=== PATIENT | male | born 1945 | race Caucasian/White ===

== ENCOUNTER 2019-03-06 10:33 | Inpatient (IN) | payer MEDICARE, OTHER ==
[~2019-03-06] VITALS: Ht 167.6 cm; Wt 84.4 kg
[2019-03-06] MEDS ORDERED: CHRONULAC30 ML PO (15:41)
[2019-03-06] MEDS ORDERED: SINEMET 25-1001 EAC1 PO (15:42)
[2019-03-06] MEDS ORDERED: SEROQUEL25 MG PO (15:43)
[2019-03-06] MEDS ORDERED: [UNRECOGNIZED DRUG - OTHER] (15:45)
[2019-03-06] MEDS ORDERED: HUMULIN N100 U/ML SC (15:45)
[2019-03-06] MEDS ORDERED: TENORMIN25 MG PO (15:46)
[2019-03-06] MEDS ORDERED: LEVOTHYROXINE100 MCG PO (15:46)
[2019-03-06 15:47] LABS: BASOPHILS 0.1 % (0-2); EOSINOPHILS 0 % (0-7); HEMATOCRIT 49.8 % (42.0-54.0); HEMOGLOBIN 16.8 g/dL (13.5-17.5); IMMATURE GRANULOCYTES 0.3 % (0-5); LYMPHOCYTES 3.2 % (15-50); MCH 32.7 pg (26.0-34.0); MCHC 33.7 g/dL (31.0-37.0); MCV 96.9 fL (80.0-100.0); MONOCYTES 8.4 % (2-11); RBC 5.14 10x6/uL (4.20-6.10); RDW 17.5 % (11.5-14.5)
[2019-03-06] MEDS ORDERED: FOLIC ACID1 MG PO (15:52)
[2019-03-06] MEDS ORDERED: SLOW RELEASE I160 MG PO (15:54)
[2019-03-06] MEDS ORDERED: LIPITOR20 MG PO (15:55)
[2019-03-06] MEDS ORDERED: BENTYL 20 MG TA20 MG PO (15:55)
[2019-03-06] MEDS ORDERED: LASIX20 MG PO (15:56)
[2019-03-06] MEDS ORDERED: MELATONIN 3 MG1 TAB PO (15:57)
[2019-03-06 15:58] LABS: PLATELET COUNT 80 10x3/uL (130-400)
[2019-03-06 16:03] LABS: ALBUMIN 3.6 g/dL (3.4-5.0); ANION GAP 14.3 mmol/L (8-16); BILIRUBIN - TOTAL 1.89 mg/dL (0.2-1.3); CALCIUM 9.3 mg/dL (8.5-10.1); CARBON DIOXIDE 23.8 mmol/L (21.0-32.0); CREATININE - SERUM 1.6 mg/dL (0.6-1.3); POTASSIUM - SERUM 5.1 mmol/L (3.5-5.1); PROTEIN - SERUM 8.3 g/dL (6.4-8.2)
[2019-03-06 16:10] VITALS: BP 130/58
[2019-03-06 17:28] LABS: PLATELET ESTIMATE DECREASED
[2019-03-06 18:26] LABS: APTT 33.6 SECONDS (22.8-39.4); INR 1.23 (0.85-1.17)
[2019-03-06 20:20] VITALS: BP 139/58
--- NOTE | 2019-03-06 20:32 | NUR ---
ATTEMPTED TO PLACE NG TUBE TO LEFT NARE. WENT DOWN FINE. BLOODY GASTRIC JUICES CAME UP. PATIENT RIPPED IT OUT BEFORE WE COULD SECURE. REFUSES PLACEMENT.
--- NOTE | 2019-03-06 20:35 | NUR ---
PATIENT ATTEMPTED REMOVAL OF IV TO RIGHT FOREARM. CAUGHT IN TIME TO PLACE ANOTHER DRESSING OVER IT.
--- NOTE | 2019-03-06 22:00 | NUR ---
ALERT, ORIENTED TO SELF AND TIME. REORIEMTED TO PLACE AND SITUATION. PT REPORTS PAIN TO ABDOMEN /. REFUSES HIBICLENS, PT IS RESTLESS AND AGITATED. ATTEMPTING TO REMOVE IV. COVERED WITH KEFLEX AND CONFERENCE CENTER MANAGER PAGED. WILL CONTINUE TO MONITOR.
[2019-03-07] VITALS (10 sets, daily range): BP systolic 91–149; BP diastolic 60–76; Ht 167.6 cm; Wt 84.4 kg
--- NOTE | 2019-03-07 04:36 | NUR ---
I have reviewed this patient and I concur with the Shift Assessment completed by the Licensed Practical Nurse today this shift.
[2019-03-07 05:58] LABS: ALBUMIN 3.3 g/dL (3.4-5.0); ANION GAP 16.5 mmol/L (8-16); BILIRUBIN - DIRECT 1.15 mg/dL (0.00-0.30); BILIRUBIN - INDIRECT 1.14 mg/dL (0.00-1.00); BILIRUBIN - TOTAL 2.29 mg/dL (0.2-1.3); CREATININE - SERUM 1.4 mg/dL (0.6-1.3); POTASSIUM - SERUM 4.5 mmol/L (3.5-5.1); PROTEIN - SERUM 7.5 g/dL (6.4-8.2)
[2019-03-07 06:10] LABS: BASOPHILS 0.1 % (0-2); EOSINOPHILS 0.3 % (0-7); HEMATOCRIT 48.5 % (42.0-54.0); HEMOGLOBIN 16.3 g/dL (13.5-17.5); IMMATURE GRANULOCYTES 0.2 % (0-5); LYMPHOCYTES 2.9 % (15-50); MCH 32.1 pg (26.0-34.0); MCHC 33.6 g/dL (31.0-37.0); MCV 95.7 fL (80.0-100.0); MONOCYTES 14.8 % (2-11); NEUTROPHILS 81.7 % (40-80); PLATELET COUNT 74 10x3/uL (130-400); RBC 5.07 10x6/uL (4.20-6.10); RDW 17.5 % (11.5-14.5)
[2019-03-07 06:13] LABS: WBC 12.1 10x3/uL (4.8-10.8)
--- NOTE | 2019-03-07 07:15 | NUR ---
PT SITTING UP ON SIDE OF BED, BED ALARM ALARMING. PT ORIENTED TO PERSON ONLY AT THIS TIME. ATTEMPTED TO REORIENTATE PT, ASSISTING HIM BACK TO BED. PT IS VERY RESTLESS. TREMORS NOTED AT THIS TIME. PT PULLING AT CLOTHING AND BEDDING. IV TO RIGHT FOREARM WITH NS @ 100ML/HR INFUSING VIA PUMP. SITE WITHOUT REDNESS OR EDEMA. NO VOMITING AT THIS TIME. CL WITHIN REACH. ENCOURAGED TO CALL WITH ASSISTANCE. SHARI FALL CHERYL IN PLACE AND ACTIVATED. CONTINUE POC
[2019-03-07 08:24] LABS: APPEARANCE CLEAR (CLEAR); BILIRUBIN NEGATIVE (NEGATIVE); COLOR DK YELLOW (YELLOW); GLUCOSE 50 mg/dL (NEGATIVE); KETONE SMALL mg/dL (NEGATIVE); NITRITE NEGATIVE (NEGATIVE); PROTEIN TRACE mg/dL (NEGATIVE); SPECIFIC GRAVITY 1.015 (1.005-1.020)
[2019-03-07 08:25] LABS: BACTERIA FEW /hpf (NEGATIVE); EPITHELIAL CELLS RARE /hpf (0-5); MUCUS <1+ /lpf (NONE SEEN); RED CELLS - URINE RARE /hpf (0-5); WHITE CELLS - URINE NSEEN /hpf (NEGATIVE)
--- NOTE | 2019-03-07 10:45 | NUR ---
PT VOMITED MODERATE AMOUNT OF DARK BROWN EMESIS. ADMINISTERED ZOFRAN PER MD ORDERS.
--- NOTE | 2019-03-07 11:15 | NUR ---
PT RESTING QUIETLY IN BED WITH EYES CLOSED AT THIS TIME. AT BEDSIDE.
--- NOTE | 2019-03-07 12:45 | NUR ---
PT TAKEN TO PRE OP VIA BED. NO ACUTE DISTRESS NOTED AT THIS TIME.
--- NOTE | 2019-03-07 17:20 | NUR ---
REC'D VIA BED FROM PACU NURSE, ITZEL, TRANSFERRED TO ICU BED AND RESUMED CARE, PATIENT IS DROWSEY, CONFUSED WITH GARBLED SPEECH, O2 VIA NC AT 5L, TRUMPET TO LEFT NARE, IN PLACE, ABDOMINAL BINDER COVERING MIDLINE INCISION WITH CDI DRESSING, LEFT SIDE WITH 3 LAP SITES, WITH CDI DRESSINGS, LANDA TO GRAVITY WITH CLEAR YELLOW DRAINAGE TO BAG, SCD'S IN PLACE BL, REPOSITIONED IN BED, AND CALLED TO BEDSIDE, ACCLAMATED TO ICU AND VISITATION HOURS, STATUS UPDATED, SHE VOICES NO CONCERNS AT THIS TIME
--- NOTE | 2019-03-07 18:00 | NUR ---
PATIENT PULLING OFF COVERS AND AT ABDOMINAL BINDER, DOES NOT FOLLOW COMMANDS, B/L WRIST RESTRAINTS PLACE PER ORDER FOR SAFETY
--- NOTE | 2019-03-07 18:40 | NUR ---
1530 ANES, RESP. LAB AT BEDSIDE. 12 LEAD EKG, ABG ORDERED AND OBTAINED. BICARB ORDERED PER ANES AND ADMINISTERED. 1545 DR. RUIZ AT BEDSIDE. CHEST XRAY, CARDIAC ENZYMES, NARCAN, ORDERED AND OBTAINED AND ADMINISTRATED. TRANSFER ORDERS TO ICU. FAMILY NOTIFIED AND UPDATED OF TRANSFER TO ICU BED 2310. NO FURTHER ORDERS RECEIVED.
--- NOTE | 2019-03-07 19:00 | NUR ---
REPORT RECEIVED, PT LETHARGIC AND DISORIENTED TO TIME, PLACE, AND SITUATION. REORIENTED NEEDED. NASAL TRUMPET IN PLACE, PT ON 5L O2 VIA NC. PIV IN LEFT FOREARM INFUSING, SEE FLOWSHEET. ASSESSMENT COMPLETED, SEE FLOWSHEET. NO ACUTE DISTRESS AT THIS TIME, WILL CONTINUE TO MONITOR.
--- NOTE | 2019-03-07 21:00 | NUR ---
PT RESTING IN BED, NO ACUTE DISTRESS NOTED AT THIS TIME.
--- NOTE | 2019-03-07 23:00 | NUR ---
PT RESTING IN BED, CONFUSED AND DISORIENTED TO PLACE, TIME, AND SITUATION. REORIENTED NEEDED. NO ACUTE DISTRESS AT THIS TIME.
[2019-03-08] VITALS (25 sets, daily range): BP systolic 92–141; BP diastolic 4–88
--- NOTE | 2019-03-08 01:00 | NUR ---
PT RESTING IN BED, NO SIGNS OF ACUTE DISTRESS NOTED. PT DISORIENTED TO PLACE, TIME, AND SITUATION, REORIENTED NEEDED.
--- NOTE | 2019-03-08 03:00 | NUR ---
PT STILL CONFUSED AND DISORIENTED, REORIENTED NEEDED TO PLACE, TIME, AND SITUATION. WILL CONTINUE TO MONITOR.
--- NOTE | 2019-03-08 05:00 | NUR ---
PT CONFUSED AND DISORIENTED, ATTEMPTING TO GET OUT OF BED, REORIENTED NEEDED. PT CALM AND COOPERATIVE AT THIS TIME.
[2019-03-08 06:12] LABS: ANION GAP 13.8 mmol/L (8-16); BILIRUBIN - DIRECT 0.96 mg/dL (0.00-0.30); BILIRUBIN - INDIRECT 1.15 mg/dL (0.00-1.00); BILIRUBIN - TOTAL 2.11 mg/dL (0.2-1.3); CARBON DIOXIDE 23.2 mmol/L (21.0-32.0); CREATININE - SERUM 1.7 mg/dL (0.6-1.3); PROTEIN - SERUM 6.3 g/dL (6.4-8.2)
[2019-03-08 06:15] LABS: ALBUMIN 2.3 g/dL (3.4-5.0)
--- NOTE | 2019-03-08 07:00 | NUR ---
REC'D REPORT AND RESUMED CARE, SLEEPING AROUSES TO VERBAL STIMULI, O2 VIA HF NC, SAT 98%, OTHER VSS, DENIES PAIN AT THIS TIME, ASSESSMENT COMPLETED PER FLOWSHEET, REPOSITIONED UP IN BED, ABDOMINAL BINDER IN PLACE, CALL LIGHT IN REACH, FOLLOWS SOME DIRECTIONS, HAS GARBLED SPEECH, COFUSED
[2019-03-08 07:32] LABS: HEMATOCRIT 43.6 % (42.0-54.0); HEMOGLOBIN 14.3 g/dL (13.5-17.5); MCH 32.1 pg (26.0-34.0); MCHC 32.8 g/dL (31.0-37.0); RBC 4.45 10x6/uL (4.20-6.10)
[2019-03-08 07:34] LABS: PLATELET COUNT 46 10x3/uL (130-400)
--- NOTE | 2019-03-08 08:20 | OP ---
PATIENT NAME: DENISE WASHINGTON MEDICAL RECORD: [id number] :43 LOCATION:[facility] D.2310 ADMISSION DATE:03/06/19 SURGEON: JOSE RAMON RUIZ MD DATE OF OPERATION: 03/07/2019 SURGEON: Jose Ramon Ruiz MD PREOPERATIVE DIAGNOSES: 1. Incarcerated ventral hernia repair. 2. Small-bowel obstruction. 3. Parkinson's dementia. POSTOPERATIVE DIAGNOSES: 1. Incarcerated strangulated ventral hernia. 2. Small-bowel obstruction. 3. Parkinson's dementia. PROCEDURES PERFORMED: Diagnostic laparoscopy, reduction of ventral hernia, laparotomy and small bowel resection. ANESTHESIA: General. COMPLICATIONS: None. SPECIMENS: Small bowel and hernia sac. ESTIMATED BLOOD LOSS: 60 cc. Case was clean contaminated. DESCRIPTION OF THE PROCEDURE After consent was obtained, the patient was taken to the operating room and placed in the supine position on the operating table. Next general anesthesia was given via endotracheal intubation after a timeout was performed to confirm the correct patient and procedure. Local anesthetic was injected in the left upper quadrant at Dumont's point. Using a 5-mm bladeless optical trocar, the abdomen was entered under direct laparoscopic vision. Adequate pneumoperitoneum was achieved. The abdominal cavity was inspected. No evidence of bowel injury. No evidence of bleeding. Two additional trocars were placed in the left lateral and left lower quadrants under direct laparoscopic vision. There was an incarcerated strangulated hernia at the umbilicus. It was a Jeffries's hernia in fashion. After wide gentle traction and external pressure, the hernia was finally able to be reduced. There was an area of perforation and in the herniated portion of the small bowel at the mesentery with active succuss drainage. At this time, a small midline incision was made with a #15-blade scalpel. Dissection continued with electrocautery to the level of the hernia sac, it was excised. The fascia was opened. Zaid retractor was placed. The small bowel was extracorporealized. The small bowel was markedly indurated and inflamed. At the enterotomy site, the linear MACK stapler was placed into the lumen of the proximal and distal limbs and a ledq-le-mwuf anastomosis was created using the linear cutting GI stapler. The common enterotomy was then closed with a second firing of the linear GI stapler. The staple line was imbricated using 3-0 Vicryl suture. The abdomen was irrigated with 3 liters of warm normal saline. OPERATIVE REPORT [id number] DENISE WASHINGTON At this time, the bowel was returned to the abdomen. The Zaid retractor was removed. Fascia was closed with a #1 looped PDS. Skin was closed with amira. The abdomen was reinsufflated. The abdominal cavity was inspected. There was no evidence of bile injury, no evidence of bleeding. At this time, all remaining instruments removed. The abdomen was desufflated. Trocars removed. Trocar sites were closed with amira. At the end of the case, all needle and instrument counts were correct. No complications occurred. The patient was extubated and transferred to the recovery room in satisfactory condition. TRANSINT:[id number] Voice Confirmation ID: [id number] DOCUMENT ID: [id number] JOSE RAMON RUIZ MD at 0820 CC: [id number] DICTATION DATE: 03/07/19 1442 MANAGER GLOBAL: 03/07/192031 ADM IN [facility] [address] [place] [address]
--- NOTE | 2019-03-08 09:00 | NUR ---
LEGS OVER SIDE OF BED AND COVERS OFF, REPOSITIONED, B/L WRIST RESTRAINTS IN USE, LOOSENED FOR REPOSITIONING, C/O PAIN, 10/12 MORPHINE 2 MG IVP GIVEN PER MAR FLOWSHEET
[2019-03-08 09:27] LABS: ANISOCYTOSIS OCC; BASOPHILS 2 % (0-2); EOSINOPHILS 2 % (0-7); LYMPHOCYTES 13 % (15-50); MONOCYTES 13 % (2-11); NEUTROPHILS 53 % (40-80); PLATELET ESTIMATE DECREASED; ROULEAUX OCC
--- NOTE | 2019-03-08 11:00 | NUR ---
PULLING AT DRESSINGS AT POST SURGICAL SITES, REPOSITIONED UP IN BED, SITES RECOVERED, N0 OTHER ACUTE CHANGE FROM PREVIOUS
--- NOTE | 2019-03-08 12:00 | NUR ---
AT BEDSIDE, PATIENT CONTINUING TO PULL OFF COVERS AND HAS PULLED OUT LEFT AC PIV, NOW PULLING AT LANDA, REPOSITION AND CONCEALED LANDA, ATIVAN 1MG IVP GIVEN PER PRN ORDER
--- NOTE | 2019-03-08 13:13 | NUR ---
Nutrition follow-up: s/p hernia repair Diet: clear liquids Pt confused per nursing Labs reviewed Wt: 185# RDN following.
--- NOTE | 2019-03-08 18:56 | MORECARE ---
CASE MANAGEMENT DISCHARGE SUMMARY PATIENT: DENISE WASHINGTON UNIT: [id number] ADM DATE: 03/06/19 AGE: 73 : 44 SEX: M ROOM/BED: D.2310 AUTHOR: VICKY PIERRE PHYSICIAN: REFERRING PHYSICIAN: CORY KOEHLER MD DATE OF SERVICE: 03/08/19 Discharge Plan Patient Name: DENISE WASHINGTON [facility] 1945 Planned Disposition: Anticipated Discharge Date: Discharge Date: Expected LOS: Initial Reviewer: [email or web address] Initial Review Date: 03/06/2019 Generated: 03/08/19 7:55 pm Patient Name: DENISE WASHINGTON Page [id number] at 1856 All edits/amendments must be made on the electronic document DICTATION DATE: 03/08/191854 ASSEMBLY MACHINE TOOL SETTER: JEANNIE 03/08/191854 RPT#: [id number] DC DATE: STATUS: ADM IN [facility] [address] [place] [address] END OF REPORT
--- NOTE | 2019-03-08 19:00 | NUR ---
REPORT RECEIVED, PT LAYING IN BED, DISORIENTED TO TIME, PLACE, SITUATION. REORIENTED NEEDED. PT CONTINUOUSLY TRYING TO SWING LEGS OUT OF BED, PT IN SOFT WRIST RESTRAINTS. LANDA IN PLACE, PIV IN RT WRIST INFUSING, SEE FLOWSHEET. PT PEELING OFF DRESSINGS ON INCISION SITES, NEW DRESSINGS PLACED. WILL CONTINUE TO MONITOR.
--- NOTE | 2019-03-08 19:02 | MORECARE ---
CASE MANAGEMENT DISCHARGE SUMMARY PATIENT: DENISE WASHINGTON UNIT: [id number] ADM DATE: 03/06/19 AGE: 73 : 44 SEX: M ROOM/BED: D.2310 AUTHOR: VICKY PIERRE PHYSICIAN: REFERRING PHYSICIAN: CORY KOEHLER MD DATE OF SERVICE: 03/08/19 Discharge Plan Patient Name: DENISE WASHINGTON [facility] [facility] 1945 Planned Disposition: Anticipated Discharge Date: Discharge Date: Expected LOS: Initial Reviewer: [email or web address] Initial Review Date: 03/06/2019 Generated: 03/08/19 8:02 pm Comments DCP- Discharge Planning Updated by [email or web address]: Sussy Ansari on 03/08/19 5:[address] CM attempted to see patient for discharge planning assessment. Patient is currently confused and no family at bedside. CM will continue to follow and assist as needed with discharge planning / needs. Last DP export: 03/08/19 5:56 p Patient Name: DENISE WASHINGTON Page [phone] at 1902 All edits/amendments must be made on the electronic document DICTATION DATE: 03/08/191901 TRAFFIC ENGINEERING TECHNICIAN: JEANNIE 03/08/191901 RPT#: [id number] DC DATE: STATUS: ADM IN [facility] [address] [place] [address] END OF REPORT
--- NOTE | 2019-03-08 21:00 | NUR ---
PT AGITATED, ATTEMPTED TO GET OUT OF BED MULTIPLE TIMES. BRUISING NOTED ON LEFT SIDE OF ABDOMEN, WILL CONTINUE TO MONITOR.
--- NOTE | 2019-03-08 23:00 | NUR ---
PT AGITATED, ATTEMPTED TO MOVE LEGS OUT OF BED. RESTRAINTS IN PLACE, WILL CONTINUE TO MONITOR.
[2019-03-09] VITALS (11 sets, daily range): BP systolic 89–150; BP diastolic 55–91
--- NOTE | 2019-03-09 01:00 | NUR ---
PT DISORIENTED AND AGITATED, ATTEMPTING TO MOVE LEGS OUT OF BED WELL PULL AT LINES AND LANDA TUBING. REORIENTED NEEDED, WILL CONTINUE TO MONITOR.
--- NOTE | 2019-03-09 03:00 | NUR ---
PT RESTING COMFORTABLY IN BED, NO ACUTE DISTRESS NOTED AT THIS TIME.
[2019-03-09 04:37] LABS: HEMATOCRIT 37.6 % (42.0-54.0); HEMOGLOBIN 12.8 g/dL (13.5-17.5); LYMPHOCYTES 4.5 % (15-50); MCH 32.2 pg (26.0-34.0); NEUTROPHILS 83.5 % (40-80); RBC 3.97 10x6/uL (4.20-6.10); RDW 17.7 % (11.5-14.5)
[2019-03-09 04:59] LABS: ALBUMIN 1.9 g/dL (3.4-5.0); ANION GAP 9.8 mmol/L (8-16); BILIRUBIN - DIRECT 0.82 mg/dL (0.00-0.30); BILIRUBIN - INDIRECT 0.68 mg/dL (0.00-1.00); BILIRUBIN - TOTAL 1.5 mg/dL (0.2-1.3); CALCIUM 7.3 mg/dL (8.5-10.1); POTASSIUM - SERUM 3.8 mmol/L (3.5-5.1); PROTEIN - SERUM 5.7 g/dL (6.4-8.2)
--- NOTE | 2019-03-09 05:00 | NUR ---
PT PULLING AT LINES AND TAKING GOWN OFF MULTIPLE TIMES. REORIENTED NEEDED.
[2019-03-09 05:14] LABS: CREATININE - SERUM 1.2 mg/dL (0.6-1.3)
[2019-03-09 05:16] LABS: MCV 94.7 fL (80.0-100.0); WBC 5.6 10x3/uL (4.8-10.8)
[2019-03-09 05:17] LABS: PLATELET COUNT 26 10x3/uL (130-400)
--- NOTE | 2019-03-09 07:00 | NUR ---
REPORT RECIEVED. ASSESSMENT COMPLETED. SEE FLOW SHEET. VSS. CALL LIGHT IN REACH. WILL CONT POC.
--- NOTE | 2019-03-09 08:17 | NUR ---
DR RUIZ IN THE UNIT.
--- NOTE | 2019-03-09 09:42 | NUR ---
BEDBATH GIVEN TO THE PT. PT UNABLE TO ASSIST. MID ABD DRESSING CHANGED. INCISION WELL APPROXIMATED WITH SCANT SEROUS DRAINAGE. MEDS CRUSHED AND PUT IN PUDDING. SMALL BITES GIVEN. PT TOLERATED WELL. WILL CONT POC.
--- NOTE | 2019-03-09 09:44 | NUR ---
REPORT CALLED TO JAILYN SALCEDO.
--- NOTE | 2019-03-09 10:07 | NUR ---
TO ROOM 2230 FROM ICU VIA SHARI BED.PT IS RESTING WITHOUT SIGNS OF DISTRESS.DOOR OPEN TO MONITOR
--- NOTE | 2019-03-09 11:00 | NUR ---
INCONT OF URINE. BRIEF PLACED ON PATIENT.HE WILL NOT LEAVE GOWN ON. HE IS ALSO PULLING 02 OFF. I HAVE PLACED 02 BACK ON MULTIPLE TIMES. DOOR OPEN TO MONITOR
--- NOTE | 2019-03-09 12:00 | NUR ---
HERE TO VISIT. SHARI BED OPEN.
--- NOTE | 2019-03-09 16:15 | NUR ---
TO LEAVE. PT HAS BEEN CHANGED,INCONT OF URINE. HE CONTINUES TO PULL AT LINES AND PULLING 02 OFF.DOOR OPEN TO MONITOR
--- NOTE | 2019-03-09 17:20 | MORECARE ---
CASE MANAGEMENT DISCHARGE SUMMARY PATIENT: DENISE ARIAS UNIT: [id number] ADM DATE: 03/06/19 AGE: 73 : 44 SEX: M ROOM/BED: D.2230 AUTHOR: VICKY PIERRE PHYSICIAN: REFERRING PHYSICIAN: CORY KOEHLER MD DATE OF SERVICE: 03/09/19 Discharge Plan Patient Name: DENISE ARIAS Facility[facility]:[place] : 1945 Planned Disposition: Residential Facility Anticipated Discharge Date: Discharge Date: Expected LOS: Initial Reviewer: [email or web address] Initial Review Date: 03/06/2019 Generated: 03/09/19 6:19 pm Comments DCP- Discharge Planning Updated by [email or web address]: Sussy Ansari on 03/08/19 5:[address] CM attempted to see patient for discharge planning assessment. Patient is currently confused and no family at bedside. CM will continue to follow and assist as needed with discharge planning / needs. DCPIA - Discharge Planning Initial Assessment Updated by [email or web address]: Carmelita Velasco on 03/09/19 5:15 pm * Is the patient Alert and Oriented? No * How many steps to enter\exit or inside your home? 1/0 * Pharmacy [facility] 7N * Preadmission Environment Home with Family * ADLs Partial Dependent * Partial ADLs (Assistance needed) Dressing Medication Management * Equipment Glucometer * List name and contact numbers for known caregivers / representatives who currently or will assist patient after discharge: Davina Arias - [facility] - [phone] * Verbal permission to speak to the caregivers and representatives has been obtained from the patient. N/A * Community resources currently utilized Other * Please name any agencies selected above. [employer] [facility] at [facility] on [address] for Parkinson's * Additional services required to return to the preadmission environment? Yes * Can the patient safely return to the preadmission environment? No * Has this patient been hospitalized within the prior 30 days at any hospital? No Last DP export: 03/08/19 6:02 p Patient Name: DENISE ARIAS Page [phone] at 1720 All edits/amendments must be made on the electronic document DICTATION DATE: 03/09/191718 ELECTRONIC SYSTEM ENGINEER: JEANNIE 03/09/191718 RPT#: [id number] DE DATE: STATUS: ADM IN [facility] [address] [place] [address] END OF REPORT
--- NOTE | 2019-03-09 17:28 | MORECARE ---
CASE MANAGEMENT DISCHARGE SUMMARY PATIENT: DENISE ARIAS UNIT: [id number] ADM DATE: 03/06/19 AGE: 73 : 44 SEX: M ROOM/BED: D.2230 AUTHOR: GABBYDOC PHYSICIAN: REFERRING PHYSICIAN: CORY KOEHLER MD DATE OF SERVICE: 03/09/19 Discharge Plan Patient Name: DENISE ARIAS Facility: [facility]:[place] : 1945 Planned Disposition: Group Home Facility Anticipated Discharge Date: Discharge Date: Expected LOS: Initial Reviewer: [email or web address] Initial Review Date: 03/06/2019 Generated: 03/09/19 6:28 pm Comments DCP- Discharge Planning Updated by [email or web address]: Carmelita Velasco on 03/09/19 4:[address] Patient Name: DENISE ARIAS Admission Status: Elective Accout number: [id number] Admission Date: 03-06-2019 : 1945 Admission Diagnosis: Attending: CORY KOEHLER Current LOS: 3 Anticipated DC Date: Planned Disposition: Group Home Facility Primary Insurance: MEDICARE A & B Discharge Planning Comments: CM met with in the room to discuss discharge planning. Her is confused and in a lilly bed at this time. She states he lives with her. She states he no longer drives, but she drives him where he needs to go. She states he has a glucometer and checks his own blood sugar, but she gives him his insulin injections. She states that she helps him don his socks and gives him his medicine, but other than that he is independent with his care. He ambulates without assistive device at home. I discussed the availability of inpatient rehab, SNF, home health and DME. She states she would like him to be closer to [facility] and signs choice form for [facility]. She does not want to choose 2 other choices at this time. CM will need to have a PT EVAL before referring to a skilled facility. PT consult has been ordered. CM will continue to follow and assist with discharge planning/needs. Visual Merchandising Assistant: Carmelita Velasco DCP- Discharge Planning Updated by [email or web address]: Sussy Ansari on 03/08/19 5:[address] CM attempted to see patient for discharge planning assessment. Patient is currently confused and no family at bedside. CM will continue to follow and assist as needed with discharge planning / needs. DCPIA - Discharge Planning Initial Assessment Updated by [id number]: Carmelita Velasco on 03/09/19 5:15 pm * Is the patient Alert and Oriented? No * How many steps to enter\exit or inside your home? 1/0 * Pharmacy [facility] 7N * Preadmission Environment Home with Family * ADLs Partial Dependent * Partial ADLs (Assistance needed) Dressing Medication Management * Equipment Glucometer * List name and contact numbers for known caregivers / representatives who currently or will assist patient after discharge: Davina Arias - - [phone] * Verbal permission to speak to the caregivers and representatives has been obtained from the patient. N/A * Community resources currently utilized Other * Please name any agencies selected above. [employer] [facility] at [facility] on [address] for Parkinson's * Additional services required to return to the preadmission environment? Yes * Can the patient safely return to the preadmission environment? No * Has this patient been hospitalized within the prior 30 days at any hospital? No Last DP export: 03/09/19 4:20 p Patient Name: DENISE ARIAS Page [phone] at 1728 All edits/amendments must be made on the electronic document DICTATION DATE: 03/09/191727 QUALIFICATION ENGINEER: JEANNIE 03/09/191727 RPT#: [id number] DC DATE: STATUS: ADM IN [facility] [address] [place] [address] END OF REPORT
--- NOTE | 2019-03-09 18:43 | NUR ---
PT PULLING AT LINES AND PULLING 02 OFF. I HAVE PRETTY MUCH BEEN UNABLE TO LEAVE ROOM AFTER LEAVING HOSPITAL. HE ALSO IS GRABBING STAFF BENDING FINGERS AND HANDS.HIS OXYGEN DROPS IN THE 80% RANGE WHEN ON ROOM AIR.CALL TO LEONILA MAYO APN FOR ORDERS.ORDERS RECIEVED AND INITIATED.CALL TO LAB FOR STAT CBC,BLOOD CUTURE FOR TEMP 101.6.
[2019-03-09 19:10] LABS: HEMATOCRIT 40.7 % (42.0-54.0); MCH 32.3 pg (26.0-34.0); MCHC 34.4 g/dL (31.0-37.0); MCV 93.8 fL (80.0-100.0); RBC 4.34 10x6/uL (4.20-6.10); RDW 16.7 % (11.5-14.5); WBC 10.5 10x3/uL (4.8-10.8)
[2019-03-09 19:20] LABS: PLATELET COUNT 28 10x3/uL (130-400)
--- NOTE | 2019-03-09 19:25 | NUR ---
LYING IN ENCLOSURE BED WITH SOME S/S OF SLIGHT AGITATION. UNABLE TO LIE STILL, CONTINUOUSLY PULLING AT LINES AND ITEMS IN BED. WILL NOTE ANY CHANGE.
[2019-03-09 19:28] LABS: LYMPHOCYTES 2 % (15-50); MONOCYTES 7 % (2-11); NEUTROPHILS 85 % (40-80)
[2019-03-09 19:29] LABS: PLATELET ESTIMATE DECREASED
--- NOTE | 2019-03-09 20:27 | NUR ---
NOTICEABLY CALMER IN ENCLOSURE BED, STILL PULLING AT LINES, BUT FACIAL GRIMACING IS MINIMAL, S/S OF DISTRESS OR AGITATION IS LOWERING. WILL NOTE ANY CHANGE.
--- NOTE | 2019-03-09 20:36 | NUR ---
CONTINUES TO PULL AT LINES, WILL NOT LEAVE OXYGEN ON, BUT TOLERATES REPLACING IT ON HIM AT THIS TIME. WILL NOTE LEAVE BINDER ON, WILL NOT LEAVE DRESSINGS TO SITES ON. WILL CONTINUE TO OBSERVE.
--- NOTE | 2019-03-09 21:28 | NUR ---
WHILE PROVIDING CARE, TALKED WITH PT ABOUT MEDICATION, HE WAS ALERT AND ANSWERED SOME QUESTIONS APPROPRIATELY, HE STATED HE HAS TAKEN HIS SINEMET FOR A LONG TIME. THIS NURSE WILL ATTEMPT TO ADMINISTER MEDS PO.
--- NOTE | 2019-03-09 22:29 | NUR ---
CALLED Rebeca STAUFFER TO CLARIFY CONFLICTING REPORT VS REVIEW IN CHART FOR ORAL CONSUMPTION, HE VERBALLY AGREED WITH PT TAKING ORAL MEDICATION. THEY WERE ADMINISTERED WITH JELLO AND NO HESITATION FROM PT. FOLLOWED ALL CUES.
[2019-03-10 00:13] VITALS: BP 117/64
--- NOTE | 2019-03-10 01:16 | NUR ---
I have reviewed this patient and I concur with the Shift Assessment completed by the Licensed Practical Nurse today this shift.
[2019-03-10 05:14] VITALS: BP 127/70
[2019-03-10 07:22] LABS: ALBUMIN 1.7 g/dL (3.4-5.0); ANION GAP 10.9 mmol/L (8-16); BILIRUBIN - TOTAL 1.51 mg/dL (0.2-1.3); CARBON DIOXIDE 24.1 mmol/L (21.0-32.0); CREATININE - SERUM 1.1 mg/dL (0.6-1.3); PROTEIN - SERUM 5.7 g/dL (6.4-8.2)
[2019-03-10 07:23] LABS: BASOPHILS 0.1 % (0-2); HEMATOCRIT 39.3 % (42.0-54.0); HEMOGLOBIN 13.2 g/dL (13.5-17.5); IMMATURE GRANULOCYTES 0.4 % (0-5); LYMPHOCYTES 3.5 % (15-50); MCH 31.9 pg (26.0-34.0); MCHC 33.6 g/dL (31.0-37.0); MCV 94.9 fL (80.0-100.0); MONOCYTES 9.9 % (2-11); NEUTROPHILS 85.1 % (40-80); RBC 4.14 10x6/uL (4.20-6.10); RDW 17.2 % (11.5-14.5); WBC 8.3 10x3/uL (4.8-10.8)
--- NOTE | 2019-03-10 07:25 | NUR ---
REC'D IN BED AWAKE AND ALERT. RESP EVEN AND UNLABORED WITH NO DISTRESS NOTED. CAN EXPRESS NEEDS AND WANTS. NO C/O NOTED OR VOICE AT THIS TIME. ASSESMENT COMPLETD. REC'D CALL FROM LAB WITH CRITCAL PLT COUNT OF 49. SPOKE WITH Martha EDGAR APN WITH NO NEW ORDERS REC'D. C/L IN REACH AT BEDSIDE.
[2019-03-10 07:26] LABS: PLATELET COUNT 49 10x3/uL (130-400)
--- NOTE | 2019-03-10 07:30 | NUR ---
REC'D IN SHARI BED WITH EYES CLOSED AROUSED TO VOICED. RESP EVEN AND UNLABORED WITH NO DISTRESS NOTED. HUGE RED BRUISING NOTED TO LEFT SIDE AND BACK. ASSESSMENT COMPLETED. C/L IN REACH AT BEDSIDE.
[2019-03-10 08:46] VITALS: BP 139/74
[2019-03-10 14:03] VITALS: BP 127/52
--- NOTE | 2019-03-10 14:54 | NUR ---
Nutrition follow-up/consult: Diet has advanced to full liquids Pt currently in lilly bed due to confusion; better per nursing Labs reviewed Wt: 185# RDN will order nutritional supplement with meals. Following.
--- NOTE | 2019-03-10 15:32 | MORECARE ---
CASE MANAGEMENT DISCHARGE SUMMARY PATIENT: DENISE ARIAS UNIT: [id number] ADM DATE: 03/06/19 AGE: 73 : 43 SEX: M ROOM/BED: D.2230 AUTHOR: GABBYDOC PHYSICIAN: REFERRING PHYSICIAN: CORY KOEHLER MD DATE OF SERVICE: 03/10/19 Discharge Plan Patient Name: DENISE ARIAS Facility: [facility]:[place] : 1945 Planned Disposition: Halfway Facility Anticipated Discharge Date: Discharge Date: Expected LOS: Initial Reviewer: [email or web address] Initial Review Date: 03/06/2019 Generated: 03/10/19 4:31 pm Comments DCP- Discharge Planning Updated by [email or web address]: Carmelita Velasco on 03/09/19 4:[address] Patient Name: DENISE ARIAS Admission Status: Elective Accout number: [id number] Admission Date: 03-06-2019 : 1945 Admission Diagnosis: Attending: CORY KOEHLER Current LOS: 3 Anticipated DC Date: Planned Disposition: Halfway Facility Primary Insurance: MEDICARE A & B Discharge Planning Comments: CM met with in the room to discuss discharge planning. Her is confused and in a lilly bed at this time. She states he lives with her. She states he no longer drives, but she drives him where he needs to go. She states he has a glucometer and checks his own blood sugar, but she gives him his insulin injections. She states that she helps him don his socks and gives him his medicine, but other than that he is independent with his care. He ambulates without assistive device at home. I discussed the availability of inpatient rehab, SNF, home health and DME. She states she would like him to be closer to [facility] and signs choice form for [facility]. She does not want to choose 2 other choices at this time. CM will need to have a PT EVAL before referring to a skilled facility. PT consult has been ordered. CM will continue to follow and assist with discharge planning/needs. Vision Specialist: Carmelita Velasco DCP- Discharge Planning Updated by [email or web address]: Sussy Ansari on 03/08/19 5:[address] CM attempted to see patient for discharge planning assessment. Patient is currently confused and no family at bedside. CM will continue to follow and assist as needed with discharge planning / needs. DCPIA - Discharge Planning Initial Assessment Updated by [email or web address]: Carmelita Velasco on 03/09/19 5:15 pm * Is the patient Alert and Oriented? No * How many steps to enter\exit or inside your home? 1/0 * Pharmacy [facility] * Preadmission Environment Home with Family * ADLs Partial Dependent * Partial ADLs (Assistance needed) Dressing Medication Management * Equipment Glucometer * List name and contact numbers for known caregivers / representatives who currently or will assist patient after discharge: Davina Arias - - [phone] * Verbal permission to speak to the caregivers and representatives has been obtained from the patient. N/A * Community resources currently utilized Other * Please name any agencies selected above. [facility] [employer] [facility] at [facility] on [address] for Parkinson's * Additional services required to return to the preadmission environment? Yes * Can the patient safely return to the preadmission environment? No * Has this patient been hospitalized within the prior 30 days at any hospital? No External Providers External Provider: [facility] Next Contact Date: Service Request Date: Service Type: Resolution: Reviewer: Comments: Last DP export: 03/09/19 4:28 p Patient Name: DENISE ARIAS Page 17634 at 1532 All edits/amendments must be made on the electronic document DICTATION DATE: 03/10/19 1531 REHABILITATION THERAPY AIDE: JEANNIE 03/10/19 1531 RPT#: [id number] DC DATE: STATUS: [facility] [address] [place] [address] END OF REPORT
--- NOTE | 2019-03-10 15:49 | MORECARE ---
CASE MANAGEMENT DISCHARGE SUMMARY PATIENT: DENISE ARIAS UNIT: [id number] ADM DATE: 03/06/19 AGE: 73 : 44 SEX: M ROOM/BED: D.2230 AUTHOR: GABBYDOC PHYSICIAN: REFERRING PHYSICIAN: CORY KOEHLER MD DATE OF SERVICE: 03/10/19 Discharge Plan Patient Name: DENISE ARIAS Facility: [facility]:[place] : 1945 Planned Disposition: Senior Living Facility Anticipated Discharge Date: Discharge Date: Expected LOS: Initial Reviewer: [email or web address] Initial Review Date: 03/06/2019 Generated: 03/10/19 4:48 pm Comments DCP- Discharge Planning Updated by [email or web address]: Carmelita Velasco on 03/10/19 2:[address] Patient's would like referral to [facility], I spoke with Marni Heart there and clinical faxed. CM will continue to follow and assist with discharge planning/needs. DCP- Discharge Planning Updated by [email or web address]: Carmelita Velasco on 03/09/19 4:[address] Patient Name: DENISE ARIAS Admission Status: Elective Accout number: [id number] Admission Date: 03-06-2019 : 1945 Admission Diagnosis: Attending: CORY KOEHLER Current LOS: 3 Anticipated DC Date: Planned Disposition: Senior Living Facility Primary Insurance: MEDICARE A & B Discharge Planning Comments: CM met with in the room to discuss discharge planning. Her is confused and in a lilly bed at this time. She states he lives with her. She states he no longer drives, but she drives him where he needs to go. She states he has a glucometer and checks his own blood sugar, but she gives him his insulin injections. She states that she helps him don his socks and gives him his medicine, but other than that he is independent with his care. He ambulates without assistive device at home. I discussed the availability of inpatient rehab, SNF, home health and DME. She states she would like him to be closer to [facility] and signs choice form for [facility]. She does not want to choose 2 other choices at this time. CM will need to have a PT EVAL before referring to a skilled facility. PT consult has been ordered. CM will continue to follow and assist with discharge planning/needs. Fiscal Clerk: Carmelita Velasco DCP- Discharge Planning Updated by [email or web address]: Sussy Ansari on 03/08/19 5:[address] CM attempted to see patient for discharge planning assessment. Patient is currently confused and no family at bedside. CM will continue to follow and assist as needed with discharge planning / needs. DCPIA - Discharge Planning Initial Assessment Updated by [email or web address]: Carmelita Velasco on 03/09/19 5:15 pm * Is the patient Alert and Oriented? No * How many steps to enter\exit or inside your home? 1/0 * Pharmacy [facility] * Preadmission Environment Home with Family * ADLs Partial Dependent * Partial ADLs (Assistance needed) Dressing Medication Management * Equipment Glucometer * List name and contact numbers for known caregivers / representatives who currently or will assist patient after discharge: Davina Arias - - [phone] * Verbal permission to speak to the caregivers and representatives has been obtained from the patient. N/A * Community resources currently utilized Other * Please name any agencies selected above. [employer] [facility] at [facility] on [address] for Parkinson's * Additional services required to return to the preadmission environment? Yes * Can the patient safely return to the preadmission environment? No * Has this patient been hospitalized within the prior 30 days at any hospital? No Last DP export: 03/10/19 2:32 p Patient Name: DENISE ARIAS Page 45775 at 1549 All edits/amendments must be made on the electronic document DICTATION DATE: 03/10/191547 MIRROR INSPECTOR: JEANNIE 03/10/191547 RPT#: [id number] DC DATE: STATUS: ADM IN [facility] [address] [place] [address] END OF REPORT
[2019-03-10 17:33] VITALS: BP 133/62
--- NOTE | 2019-03-10 18:33 | NUR ---
I have reviewed this patient and I concur with the Shift Assessment completed by the Licensed Practical Nurse today this shift.
--- NOTE | 2019-03-10 20:10 | NUR ---
RECEIVED AWAKE ALERT WITH CONFUSION NOTED. HAS OXYGEN OFF. O2 VIA NC REPLACE. SPO2 @ 96%. NO DISTRESS NOTED.IV TO RFA INTACT WITHOUT REDENSS OR EDEMA NOTED. MID LINE INCISION WITH GRECIA INTACT.INCISION TO LEFT ABD WITH GRECIA INTACT. NO DRAINAGE NOTED. PATIENT IS IN ENCLOSURE BED FOR [facility].
[2019-03-10 21:00] VITALS: BP 124/57
--- NOTE | 2019-03-10 23:30 | NUR ---
RESTING QUIELTY WITH NO DISTRESS NOTED. POSITONS SELF FOR COMFORT. CL IN REACH
[2019-03-11 00:16] VITALS: BP 123/62
--- NOTE | 2019-03-11 03:04 | NUR ---
I have reviewed this patient and I concur with the Shift Assessment completed by the Licensed Practical Nurse today this shift.
--- NOTE | 2019-03-11 03:50 | NUR ---
POSITIONS SELF FOR COMFORT. INCONTINENT OF B/B. LINENS CHANGED. DEB CARE GIVEN. NO DISTRESS NOTED.
[2019-03-11 05:07] VITALS: BP 144/74
--- NOTE | 2019-03-11 06:04 | NUR ---
AROUSES TO VERBAL STIMULI. NO DISTESS NOTED.O2 @ 3L PER HIGH FLOW ON. RESP UNALBORED. REMAINS DISORIENTED TO SURROUNDINGS. FALL PRECAUTIONS IN PLACE.CL IN REACH
[2019-03-11 06:46] LABS: ALBUMIN 1.5 g/dL (3.4-5.0); ALKALINE PHOSPHATASE 69 U/L (46-116); ALT (SGPT) 28 U/L (10-68); BILIRUBIN - TOTAL 1.38 mg/dL (0.2-1.3); CALC OSMOLALITY 279 mosm/kg (275-300); CALCIUM 7.9 mg/dL (8.5-10.1); CARBON DIOXIDE 24.5 mmol/L (21.0-32.0); CHLORIDE - SERUM 105 mmol/L (98-107); GLUCOSE 146 mg/dL (74-106); POTASSIUM - SERUM 3.8 mmol/L (3.5-5.1); PROTEIN - SERUM 4.9 g/dL (6.4-8.2); SODIUM 136 mmol/L (136-145); UREA NITROGEN 27 mg/dL (7-18); eGFR NON AFRICAN AMERICAN 78 mL/min (90-120)
[2019-03-11 06:54] LABS: BASOPHILS 0.1 % (0-2); HEMATOCRIT 36.4 % (42.0-54.0); HEMOGLOBIN 12.5 g/dL (13.5-17.5); IMMATURE GRANULOCYTES 0.7 % (0-5); LYMPHOCYTES 5.5 % (15-50); MCHC 34.3 g/dL (31.0-37.0); MCV 93.1 fL (80.0-100.0); MONOCYTES 8.7 % (2-11); RBC 3.91 10x6/uL (4.20-6.10); WBC 8.7 10x3/uL (4.8-10.8)
[2019-03-11 06:56] LABS: PLATELET COUNT 43 10x3/uL (130-400)
--- NOTE | 2019-03-11 07:15 | NUR ---
REC'D IN BED AWAKE AND ALERT TO NAME ONLY. RESP EVEN AND UNLABORED WITH NO DISTRESS NOTED HAS O2 IN USE VIA N/C THAT HE REMOVS FROM TIME TO TIME WITH REDIRECTION GIVEN. REMAIN IN SHARI BED AT THIS TIME FOR SAFETY. ASSESSMENT COMPLETED. MIDLINE INCISION NOTED WITH HUGE RED BRUISE NOTED TO LEFT SIDE. C/L IN REACH AT BEDSIDE.
[2019-03-11 08:46] VITALS: BP 102/57
[2019-03-11 12:45] VITALS: BP 133/67
[2019-03-11 18:02] VITALS: BP 101/64
--- NOTE | 2019-03-11 18:05 | NUR ---
PT HAS BEEN HAVING SOME DRAINAGE FROM ONE OF THE LAP SITE ON HIS LEFT SIDE. DR. PIMENTEL HERE ROUNDING AND EXAMINED PT NO NEW ORDERS NOTED AT THIS TIME. HE ALSO TALKED WITH AT BEDSIDE.
[2019-03-11 19:41] VITALS: BP 152/68
--- NOTE | 2019-03-11 20:30 | NUR ---
AROUSES TO VERBAL STIMULI. ORIENTED TO NAME ONLY. RESP EVEN AND UNALBORED. NO DISTRESS NOTED. O2 @ 3L PER HIGHFLOW INTACT. IV INFUSING TO RFA WITHOUT REDNESS OR EDEMA NOTED. MIDLINE INCISIONS WITH GRECIA INTACT. HAS LAP SITE INCISIONS TO LEFT ABD WITHOUT DRAINAGE NOTED. TURNED AND POSITIONED. REMAINS IN SHARI BED FOR [facility]
[2019-03-12 00:42] VITALS: BP 115/62
--- NOTE | 2019-03-12 02:59 | NUR ---
I have reviewed this patient and I concur with the Shift Assessment completed by the Licensed Practical Nurse today this shift.
[2019-03-12 04:48] VITALS: BP 140/67
--- NOTE | 2019-03-12 07:30 | NUR ---
PT RESTING IN SHARI BED WITH EYES CLOSED, EASILY AROUSED TO SPEECH. CURRENTLY RCVING 3L VIA NC. NO IV ACCESS PRESENT, GERIATRIC CASE MANAGER NURSE LON REPORTED THAT PT PULLED IT OUT AND HER AND ANOTHER NURSE HAD MULTIPLE FAILED ATTEMPTS TO RESITE, I WILL TRY AGAIN DANIEL. NO S/S OF DISTRESS AT THIS TIME, WILL CONT TO MONITOR.
[2019-03-12 08:02] VITALS: BP 117/53
--- NOTE | 2019-03-12 08:34 | NUR ---
LINENS CHANGED DUE TO LLQ INCISION DRAINING CONT. FAILED ATTEMPT TO RESITE IV, INFORMED CHARGE NURSE DIAMOND AND ASKED FOR HER TO TRY WHEN SHE HAS TIME. WILL CONT TO MONITOR.
[2019-03-12 09:49] LABS: BASOPHILS 0.3 % (0-2); EOSINOPHILS 1.2 % (0-7); HEMOGLOBIN 14.9 g/dL (13.5-17.5); IMMATURE GRANULOCYTES 1.4 % (0-5); LYMPHOCYTES 6.5 % (15-50); MCH 32.2 pg (26.0-34.0); MCHC 34.1 g/dL (31.0-37.0); MCV 94.4 fL (80.0-100.0); MONOCYTES 8.2 % (2-11); NEUTROPHILS 82.4 % (40-80); RBC 4.63 10x6/uL (4.20-6.10); WBC 10.4 10x3/uL (4.8-10.8)
[2019-03-12 09:50] LABS: HEMATOCRIT 43.7 % (42.0-54.0); PLATELET COUNT 56 10x3/uL (130-400)
[2019-03-12 09:57] LABS: CALC OSMOLALITY 280 mosm/kg (275-300); CALCIUM 8.2 mg/dL (8.5-10.1); CARBON DIOXIDE 26.1 mmol/L (21.0-32.0); CHLORIDE - SERUM 103 mmol/L (98-107); GLUCOSE 148 mg/dL (74-106); POTASSIUM - SERUM 4.1 mmol/L (3.5-5.1); SODIUM 137 mmol/L (136-145); UREA NITROGEN 25 mg/dL (7-18); eGFR NON AFRICAN AMERICAN 78 mL/min (90-120)
--- NOTE | 2019-03-12 10:11 | NUR ---
IV RESITED TO RIGHT HAND.
--- NOTE | 2019-03-12 11:00 | NUR ---
PT RESTING IN SHARI BED, EYES OPEN, ALERT. AT THE BEDSIDE. LINENS CHANGED. NO S/S OF DISTRESS, WILL CONT TO MONITOR.
[2019-03-12 11:36] VITALS: BP 119/53
--- NOTE | 2019-03-12 12:24 | NUR ---
PT RESTING IN SHARI BED WITH EYES CLOSED, EASILY AROUSED TO SPEECH. LINENS CHANGED. NO S/S OF DISTRESS, WILL CONT TO MONITOR.
--- NOTE | 2019-03-12 16:08 | NUR ---
PT RESTING IN BED WITH EYES CLOSED, EASILY AROUSED TO SPEECH. NO S/S OF DISTRESS AT THIS TIME, WILL CONT TO MONITOR.
[2019-03-12 16:57] VITALS: BP 124/64
--- NOTE | 2019-03-12 18:01 | NUR ---
PT HAS PULLED IV OUT AGAIN, WILL ATTEMPT TO RESITE AGAIN.
--- NOTE | 2019-03-12 19:45 | NUR ---
IV RESITED TO RFA PER CHAR SALCEDO WITH 20 G X 1 ATTEMPT. PATIENT CONTINUES TO BE CONFUSED. PULLING O2 OFF AND TRYING TO SCOOT SELF OUT OF BED. REMAINS IN SHARI BED FOR SAFTEY. CL IN REACH
--- NOTE | 2019-03-12 19:58 | NUR ---
PATIENT CONTINUES TO TRY TO GET OUT OF BED. SHARI BED SECURED. INCREASED AGITATION NOTED. ATIVAN 1 MG GIVEN IV PER ORDERS. CL IN REACH
--- NOTE | 2019-03-12 20:30 | NUR ---
LYING QUIETLY WITH EYES CLOSED RESP EVEN AND UNLABORED. NO DISTRESS NOTED. AROUSES TO VERBAL STIMULI. IV TO RFA INTACT WITHOUT REDNESS OR EDEMA NOTED. CL IN REACH. POSITIONS SELF FOR COMFORT.
[2019-03-12 20:42] VITALS: BP 148/70
[2019-03-13 01:34] VITALS: BP 123/71
--- NOTE | 2019-03-13 04:03 | NUR ---
I have reviewed this patient and I concur with the Shift Assessment completed by the Licensed Practical Nurse today this shift.
--- NOTE | 2019-03-13 05:00 | NUR ---
AROUSES EASILY TO VERBAL STIMULI. RESP UNLABORED. O2 @ 2L PER NC ON. TURNED AND POSITIONED FOR COMFORT.CL IN REACH
[2019-03-13 05:12] VITALS: BP 127/67
--- NOTE | 2019-03-13 07:37 | NUR ---
PATIENT RESTING IN SHARI BED. LUNGS CLEAR BILATERALLY. HEART SOUNDS S1 AND S2 HEARD IN ALL COVARRUBIAS. BOWEL SOUNDS ACTIVE X 4. INCISIONS X4 TO ABD. UPPER INCISION TO LEFT SIDE DRAINING. TOWEL IN BED UNDER SITE. MD AWARE. REDNESS NOTED TO ALL INCISION SITES. MD AWARE. RN GIVING REPORT STATES PATIENT HAD REACTION TO ADHESIVE USED. IV TO RIGHT WRIST PATENT WITHOUT REDNESS. O2 IN PLACE AT 3.5L NC. SCDS IN PLACE. WILL CONTINUE TO MONITOR.
[2019-03-13 07:44] VITALS: BP 127/57
[2019-03-13 08:09] LABS: BASOPHILS 0.4 % (0-2); EOSINOPHILS 1.4 % (0-7); HEMATOCRIT 45.1 % (42.0-54.0); HEMOGLOBIN 15.3 g/dL (13.5-17.5); IMMATURE GRANULOCYTES 1.4 % (0-5); LYMPHOCYTES 5.9 % (15-50); MCH 31.8 pg (26.0-34.0); MCHC 33.9 g/dL (31.0-37.0); MCV 93.8 fL (80.0-100.0); MONOCYTES 6.3 % (2-11); NEUTROPHILS 84.6 % (40-80); RBC 4.81 10x6/uL (4.20-6.10); RDW 16.7 % (11.5-14.5); WBC 10.7 10x3/uL (4.8-10.8)
[2019-03-13 08:11] LABS: PLATELET COUNT 73 10x3/uL (130-400)
[2019-03-13 08:27] LABS: PLATELET ESTIMATE DECREASED
[2019-03-13 08:30] LABS: ANION GAP 10.4 mmol/L (8-16); CARBON DIOXIDE 28.4 mmol/L (21.0-32.0); CREATININE - SERUM 1.1 mg/dL (0.6-1.3); POTASSIUM - SERUM 3.8 mmol/L (3.5-5.1)
--- NOTE | 2019-03-13 10:00 | NUR ---
RESTING IN BED. AT BEDSIDE. DENIES NEEDS. WILL CONTINUE TO MONITOR.
--- NOTE | 2019-03-13 11:29 | MORECARE ---
CASE MANAGEMENT DISCHARGE SUMMARY PATIENT: DENISE ARIAS UNIT: [id number] ADM DATE: 03/06/19 AGE: 73 : 44 SEX: M ROOM/BED: D.2230 AUTHOR: GABBYDOC PHYSICIAN: REFERRING PHYSICIAN: CORY KOEHLER MD DATE OF SERVICE: 03/13/19 Discharge Plan Patient Name: DENISE ARIAS Facility: [facility]:[place] : 1945 Planned Disposition: Retirement Facility Anticipated Discharge Date: Discharge Date: Expected LOS: Initial Reviewer: [email or web address] Initial Review Date: 03/06/2019 Generated: 03/13/19 12:28 pm Comments DCP- Discharge Planning Updated by [email or web address]: Carmelita Velasco on 03/13/19 10:[address] UPDATED CLINICAL FAXED TO [facility] PER MARNI MARQUEZ'S REQUEST. CM WILL CONTINUE TO FOLLOW AND ASSIST WITH DISCHARGE PLANNING/NEEDS. DCP- Discharge Planning Updated by [email or web address]: Carmelita Velasco on 03/10/19 2:[address] Patient's would like referral to [facility], I spoke with Marni Marquez there and clinical faxed. CM will continue to follow and assist with discharge planning/needs. DCP- Discharge Planning Updated by [email or web address]: Carmelita Velasco on 03/09/19 4:[address] Patient Name: DENISE ARIAS Admission Status: Elective Accout number: [id number] Admission Date: 03-06-2019 : 1945 Admission Diagnosis: Attending: CORY KOEHLER Current LOS: 3 Anticipated DC Date: Planned Disposition: Retirement Facility Primary Insurance: MEDICARE A & B Discharge Planning Comments: CM met with in the room to discuss discharge planning. Her is confused and in a lilly bed at this time. She states he lives with her. She states he no longer drives, but she drives him where he needs to go. She states he has a glucometer and checks his own blood sugar, but she gives him his insulin injections. She states that she helps him don his socks and gives him his medicine, but other than that he is independent with his care. He ambulates without assistive device at home. I discussed the availability of inpatient rehab, SNF, home health and DME. She states she would like him to be closer to [facility] and signs choice form for [facility]. She does not want to choose 2 other choices at this time. CM will need to have a PT EVAL before referring to a skilled facility. PT consult has been ordered. CM will continue to follow and assist with discharge planning/needs. Net Architect: Carmelita Velasco DCP- Discharge Planning Updated by [email or web address]: Sussy Ansari on 03/08/19 5:[address] CM attempted to see patient for discharge planning assessment. Patient is currently confused and no family at bedside. CM will continue to follow and assist as needed with discharge planning / needs. DCPIA - Discharge Planning Initial Assessment Updated by [email or web address]: Carmelita Velasco on 03/09/19 5:15 pm * Is the patient Alert and Oriented? No * How many steps to enter\exit or inside your home? 1/0 * Pharmacy [facility] * Preadmission Environment Home with Family * ADLs Partial Dependent * Partial ADLs (Assistance needed) Dressing Medication Management * Equipment Glucometer * List name and contact numbers for known caregivers / representatives who currently or will assist patient after discharge: Davina Arias - - [phone] * Verbal permission to speak to the caregivers and representatives has been obtained from the patient. N/A * Community resources currently utilized Other * Please name any agencies selected above. [employer] [facility] at [facility] on [address] for Parkinson's * Additional services required to return to the preadmission environment? Yes * Can the patient safely return to the preadmission environment? No * Has this patient been hospitalized within the prior 30 days at any hospital? No Last DP export: 03/10/19 2:49 p Patient Name: DENISE ARIAS Page 41033 at 1129 All edits/amendments must be made on the electronic document DICTATION DATE: 03/13/191127 ASSISTANT CHIEF NURSING OFFICER: JEANNIE 03/13/191127 RPT#: [id number] DC DATE: STATUS: ADM IN [facility] [address] [place] [address] END OF REPORT
[2019-03-13 11:52] VITALS: BP 127/71
--- NOTE | 2019-03-13 12:09 | NUR ---
PATIENT RESTING IN BED. STATES PATIENT TOOK OFF O2. O2 PLACED BACK ON PATIENT WITHOUT DIFFICULTY. DENIES FURTHER NEEDS. WILL CONTINUE TO MONITOR.
--- NOTE | 2019-03-13 14:21 | NUR ---
PATIENT RESTING IN BED. AT BEDSIDE. WILL CONTINUE TO MONITOR.
--- NOTE | 2019-03-13 14:35 | NUR ---
PATIENT IN BED WITH AT BS AND OXYGEN PULLED OFF. OXYGEN PLACED BACK ON PATIENT AND PATIENT BLANKETS REPLACED. DENIES FURTHER NEEDS.
--- NOTE | 2019-03-13 14:38 | NUR ---
STATES WANTS TO USE HOME XIFAXIN INSTEAD OF HOSPITAL SUPPLY. SPOKE WITH PHARMACY WHO STATES BRING PATIENT HOME BOTTLE OF XIFAXIN TO PHARMACY TO BE VERIFIED AND LABELED.
--- NOTE | 2019-03-13 14:44 | NUR ---
TEN TABS XIFAXIN GIVEN TO NURSE BY PATIENT'S AND TAKEN TO PHARMACY WITH PATIENT LABEL ON MEDS TO BE VERIFIED.
--- NOTE | 2019-03-13 15:00 | NUR ---
SPOKE WITH PHARMACY IN PERSON. PHARMACIST STATES CANNOT USE HOME MED XIFACIN D/T MEDICATION IS INCORRECT DOSE AND MEDICATION DOES NOT HAVE NAME OF DOCTOR ON MED. NOTIFIED THAT DOCTOR WOULD NEED TO WRITE ORDER FOR DOSE OF XIFAXIN PATIENT'S HAS, WELL ORDER TO USE HOME MED. VERBALIZED UNDERSTANDING. STATES WILL USE HOSPITAL MED. PATIENT'S OWN MED RETURNED TO .
[2019-03-13 17:04] VITALS: BP 113/68
[2019-03-13 21:08] VITALS: BP 123/61
[2019-03-14 01:05] VITALS: BP 116/57
[2019-03-14 04:38] VITALS: BP 114/55
[2019-03-14 06:04] LABS: BASOPHILS 0.3 % (0-2); EOSINOPHILS 1.1 % (0-7); HEMOGLOBIN 14.6 g/dL (13.5-17.5); IMMATURE GRANULOCYTES 1.1 % (0-5); LYMPHOCYTES 3.9 % (15-50); MCH 31.9 pg (26.0-34.0); MCV 94.1 fL (80.0-100.0); MONOCYTES 8.3 % (2-11); NEUTROPHILS 85.3 % (40-80); RBC 4.57 10x6/uL (4.20-6.10); RDW 16.4 % (11.5-14.5); WBC 11.8 10x3/uL (4.8-10.8)
[2019-03-14 06:26] LABS: CALC OSMOLALITY 276 mosm/kg (275-300); CALCIUM 7.7 mg/dL (8.5-10.1); CARBON DIOXIDE 25.1 mmol/L (21.0-32.0); CHLORIDE - SERUM 101 mmol/L (98-107); GLUCOSE 214 mg/dL (74-106); SODIUM 133 mmol/L (136-145); UREA NITROGEN 27 mg/dL (7-18); eGFR NON AFRICAN AMERICAN 78 mL/min (90-120)
[2019-03-14 06:58] LABS: PLATELET COUNT 98 10x3/uL (130-400)
--- NOTE | 2019-03-14 07:16 | NUR ---
I have reviewed this patient and I concur with the Shift Assessment completed by the Licensed Practical Nurse today this shift.
--- NOTE | 2019-03-14 07:55 | MORECARE ---
CASE MANAGEMENT DISCHARGE SUMMARY PATIENT: DENISE ARIAS UNIT: [id number] ADM DATE: 03/06/19 AGE: 73 : 43 SEX: M ROOM/BED: D.2230 AUTHOR: VICKY PIERRE PHYSICIAN: REFERRING PHYSICIAN: CORY KOEHLER MD DATE OF SERVICE: 03/14/19 Discharge Plan Patient Name: DENISE ARIAS Facility: [facility]:[place] : 1945 Planned Disposition: Jail Facility Anticipated Discharge Date: Discharge Date: Expected LOS: Initial Reviewer: [email or web address] Initial Review Date: 03/06/2019 Generated: 03/14/19 8:54 am Comments DCP- Discharge Planning Updated by [email or web address]: Carmelita Velasco on 03/14/19 6:[address] UPDATED CLINICAL FAXED TO [facility]. THEY ARE STILL REVIEWING CLINICAL. HE WILL NEED TO BE OUT OF THE LILLY BED PRIOR TO ADMISSION. CM WILL CONTINUE TO FOLLOW AND ASSIST WITH DISCHARGE PLANNING/NEEDS. DCP- Discharge Planning Updated by [email or web address]: Carmelita Velasco on 03/13/19 10:[address] UPDATED CLINICAL FAXED TO [facility] PER MARNI MARQUEZ'S REQUEST. CM WILL CONTINUE TO FOLLOW AND ASSIST WITH DISCHARGE PLANNING/NEEDS. DCP- Discharge Planning Updated by [email or web address]: Carmelita Velasco on 03/10/19 2:[address] Patient's would like referral to [facility], I spoke with Marni Marquez there and clinical faxed. CM will continue to follow and assist with discharge planning/needs. DCP- Discharge Planning Updated by [email or web address]: Carmelita Velasco on 03/09/19 4:[address] Patient Name: DENISE ARIAS Admission Status: Elective Accout number: [id number] Admission Date: 03-06-2019 : 1945 Admission Diagnosis: Attending: CORY KOEHLER Current LOS: 3 Anticipated DC Date: Planned Disposition: Jail Facility Primary Insurance: MEDICARE A & B Discharge Planning Comments: CM met with in the room to discuss discharge planning. Her is confused and in a lilly bed at this time. She states he lives with her. She states he no longer drives, but she drives him where he needs to go. She states he has a glucometer and checks his own blood sugar, but she gives him his insulin injections. She states that she helps him don his socks and gives him his medicine, but other than that he is independent with his care. He ambulates without assistive device at home. I discussed the availability of inpatient rehab, SNF, home health and DME. She states she would like him to be closer to [facility] and signs choice form for [facility]. She does not want to choose 2 other choices at this time. CM will need to have a PT EVAL before referring to a skilled facility. PT consult has been ordered. CM will continue to follow and assist with discharge planning/needs. Glycerine Plant Operator: Carmelita Velasco DCP- Discharge Planning Updated by [email or web address]: Sussy Ansari on 03/08/19 5:[address] CM attempted to see patient for discharge planning assessment. Patient is currently confused and no family at bedside. CM will continue to follow and assist as needed with discharge planning / needs. DCPIA - Discharge Planning Initial Assessment Updated by [email or web address]: Carmelita Velasco on 03/09/19 5:15 pm * Is the patient Alert and Oriented? No * How many steps to enter\exit or inside your home? 1/0 * Pharmacy [facility] * Preadmission Environment Home with Family * ADLs Partial Dependent * Partial ADLs (Assistance needed) Dressing Medication Management * Equipment Glucometer * List name and contact numbers for known caregivers / representatives who currently or will assist patient after discharge: Davina Arias - - [phone] * Verbal permission to speak to the caregivers and representatives has been obtained from the patient. N/A * Community resources currently utilized Other * Please name any agencies selected above. [employer] [facility] at [facility] on [address] for Parkinson's * Additional services required to return to the preadmission environment? Yes * Can the patient safely return to the preadmission environment? No * Has this patient been hospitalized within the prior 30 days at any hospital? No Last DP export: 03/13/19 10:29 a Patient Name: DENISE ARIAS Page 12887 at 0755 All edits/amendments must be made on the electronic document DICTATION DATE: 03/14/19753 UM SPECIALIST: JEANNIE 03/14/19753 RPT#: [id number] DC DATE: STATUS: ADM IN [facility] [address] [place] [address] END OF REPORT
--- NOTE | 2019-03-14 08:10 | NUR ---
ALERT AND ORIENTED TO SELF. NOT ATTEMPTED TO GET OOB. LEFT SIDE OF SHARI BED UNZIPPED AND PATIENT PLACED ON REGULAR SHARI MAT TO MONITOR. LUNGS CLEAR BILATERALLY. HEART SOUNDS S1 AND S2 HEARD IN ALL COVARRUBIAS. BOWEL SOUNDS ACTIVE X 4. ABD INCISIONS X 4 WITH REDNESS. LEFT TOP INCISION DRAINING CLEAR FLUIDS. MD AWARE. PAD PLACED UNDER SIDE TO CATCH DRAINAGE. IV TO RIGHT WRIST PATENT WITHOUT REDNESS. BED LOW. FALL PRECAUTIONS IN PLACE. CALL MAY AND PERSONAL ITEMS IN REACH. WILL CONTINUE TO MONITOR.
[2019-03-14 08:37] VITALS: BP 127/61
--- NOTE | 2019-03-14 09:51 | MORECARE ---
CASE MANAGEMENT DISCHARGE SUMMARY PATIENT: DENISE ARIAS UNIT: [id number] ADM DATE: 03/06/19 AGE: 73 : 44 SEX: M ROOM/BED: D.2230 AUTHOR: VICKY PIERRE PHYSICIAN: REFERRING PHYSICIAN: CORY KOEHLER MD DATE OF SERVICE: 03/14/19 Discharge Plan Patient Name: DENISE ARIAS Facility: [facility]:[place] : 1945 Planned Disposition: Long Term Facility Anticipated Discharge Date: Discharge Date: Expected LOS: Initial Reviewer: [id number] Initial Review Date: 03/06/2019 Generated: 03/14/19 10:51 am Comments DCP- Discharge Planning Updated by [email or web address]: Carmelita Velasco on 03/14/19 6:[address] UPDATED CLINICAL FAXED TO [facility]. THEY ARE STILL REVIEWING CLINICAL. HE WILL NEED TO BE OUT OF THE LILLY BED PRIOR TO ADMISSION. CM WILL CONTINUE TO FOLLOW AND ASSIST WITH DISCHARGE PLANNING/NEEDS. DCP- Discharge Planning Updated by [email or web address]: Carmelita Velasco on 03/13/19 10:[address] UPDATED CLINICAL FAXED TO [facility] PER MARNI MARQUEZ'S REQUEST. CM WILL CONTINUE TO FOLLOW AND ASSIST WITH DISCHARGE PLANNING/NEEDS. DCP- Discharge Planning Updated by [email or web address]: Carmelita Velasco on 03/10/19 2:[address] Patient's would like referral to [facility], I spoke with Marni Marquez there and clinical faxed. CM will continue to follow and assist with discharge planning/needs. DCP- Discharge Planning Updated by [id number]: Carmelita Velasco on 03/09/19 4:[address] Patient Name: DENISE ARIAS Admission Status: Elective Accout number: [id number] Admission Date: 03-06-2019 : 1945 Admission Diagnosis: Attending: CORY KOEHLER Current LOS: 3 Anticipated DC Date: Planned Disposition: Long Term Facility Primary Insurance: MEDICARE A & B Discharge Planning Comments: CM met with in the room to discuss discharge planning. Her is confused and in a lilly bed at this time. She states he lives with her. She states he no longer drives, but she drives him where he needs to go. She states he has a glucometer and checks his own blood sugar, but she gives him his insulin injections. She states that she helps him don his socks and gives him his medicine, but other than that he is independent with his care. He ambulates without assistive device at home. I discussed the availability of inpatient rehab, SNF, home health and DME. She states she would like him to be closer to [facility] and signs choice form for [facility]. She does not want to choose 2 other choices at this time. CM will need to have a PT EVAL before referring to a skilled facility. PT consult has been ordered. CM will continue to follow and assist with discharge planning/needs. Set O Type Operator: Carmelita Velasco DCP- Discharge Planning Updated by [id number]: Sussy Ansari on 03/08/19 5:[address] CM attempted to see patient for discharge planning assessment. Patient is currently confused and no family at bedside. CM will continue to follow and assist as needed with discharge planning / needs. DCPIA - Discharge Planning Initial Assessment Updated by [id number]: Carmelita Velasco on 03/09/19 5:15 pm * Is the patient Alert and Oriented? No * How many steps to enter\exit or inside your home? 1/0 * Pharmacy [facility] * Preadmission Environment Home with Family * ADLs Partial Dependent * Partial ADLs (Assistance needed) Dressing Medication Management * Equipment Glucometer * List name and contact numbers for known caregivers / representatives who currently or will assist patient after discharge: Davina Arias - [facility] - [phone] * Verbal permission to speak to the caregivers and representatives has been obtained from the patient. N/A * Community resources currently utilized Other * Please name any agencies selected above. [employer] [facility] at [facility] [address] for Parkinson's * Additional services required to return to the preadmission environment? Yes * Can the patient safely return to the preadmission environment? No * Has this patient been hospitalized within the prior 30 days at any hospital? No Coverage Notice Reviewer: [id number] - Carmelita Velasco Notice Issued Date-Time: 03/09/2019 12:30 Notice Type: Patient Choice Letter Notice Delivered To: Family Member Relationship to Patient: Spouse Receptionist/Telephone Operator Name: Davina Delivery Method: HAND - Hand Delivered Rody Days: Prior Verbal Notification: Recipient Understood Notice: Yes Recipient Signature: Yes Med Rec Note Co-signed by Attending: Coverage Notice Comment: JOAO for [facility] Last DP export: 03/14/19 6:55 Patient Name: DENISE ARIAS Page [id number] at 0951 All edits/amendments must be made on the electronic document DICTATION DATE: 03/14/19950 EAR NOSE THROAT PHYSICIAN: JEANNIE 03/14/19950 RPT#: [id number] DC DATE: STATUS: ADM IN [facility] [address] [place] [address] END OF REPORT
--- NOTE | 2019-03-14 09:59 | MORECARE ---
CASE MANAGEMENT DISCHARGE SUMMARY PATIENT: DENISE ARIAS UNIT: [id number] ADM DATE: 03/06/19 AGE: 73 : 44 SEX: M ROOM/BED: D.2230 AUTHOR: GABBY,DOC PHYSICIAN: REFERRING PHYSICIAN: CORY KOEHLER MD DATE OF SERVICE: 03/14/19 Discharge Plan Patient Name: DENISE ARIAS Facility: [facility]:[place] : 1945 Planned Disposition: Detention Facility Anticipated Discharge Date: Discharge Date: Expected LOS: Initial Reviewer: [id number] Initial Review Date: 03/06/2019 Generated: 03/14/19 10:58 am Comments DCP- Discharge Planning Updated by [email or web address]: Carmelita Velasco on 03/14/19 8:[address] CM received a call from Marni Marquez with [facility]. Marni states that they are not going to accept patient due to his confusion. I have informed his at the bedside and referral made to [facility] per her request. I informed Mickie with [facility] and clinical faxed. CM will continue to follow and assist with discharge planning/needs. DCP- Discharge Planning Updated by [email or web address]: Carmelita Velasco on 03/14/19 6:[address] UPDATED CLINICAL FAXED TO [facility]. THEY ARE STILL REVIEWING CLINICAL. HE WILL NEED TO BE OUT OF THE SHARI BED PRIOR TO ADMISSION. CM WILL CONTINUE TO FOLLOW AND ASSIST WITH DISCHARGE PLANNING/NEEDS. DCP- Discharge Planning Updated by [email or web address]: Carmelita Velasco on 03/13/19 10:[address] UPDATED CLINICAL FAXED TO [facility] PER MARNI MARQUEZ'S REQUEST. CM WILL CONTINUE TO FOLLOW AND ASSIST WITH DISCHARGE PLANNING/NEEDS. DCP- Discharge Planning Updated by [email or web address]: Carmelita Velasco on 03/10/19 2:[address] Patient's would like referral to [facility], I spoke with Marni Marquez there and clinical faxed. CM will continue to follow and assist with discharge planning/needs. DCP- Discharge Planning Updated by [id number]: Carmelita Velasco on 03/09/19 4:[address] Patient Name: DENISE ARIAS Admission Status: Elective Accout number: [id number] Admission Date: 03-06-2019 : 1945 Admission Diagnosis: Attending: CORY KOEHLER Current LOS: 3 Anticipated DC Date: Planned Disposition: Detention Facility Primary Insurance: MEDICARE A & B Discharge Planning Comments: CM met with in the room to discuss discharge planning. Her is confused and in a shari bed at this time. She states he lives with her. She states he no longer drives, but she drives him where he needs to go. She states he has a glucometer and checks his own blood sugar, but she gives him his insulin injections. She states that she helps him don his socks and gives him his medicine, but other than that he is independent with his care. He ambulates without assistive device at home. I discussed the availability of inpatient rehab, SNF, home health and DME. She states she would like him to be closer to [facility] and signs choice form for [facility]. She does not want to choose 2 other choices at this time. CM will need to have a PT EVAL before referring to a skilled facility. PT consult has been ordered. CM will continue to follow and assist with discharge planning/needs. Operations Processor: Carmelita Velasco DCP- Discharge Planning Updated by [id number]: Sussy Ansari on 03/08/19 5:[address] CM attempted to see patient for discharge planning assessment. Patient is currently confused and no family at bedside. CM will continue to follow and assist as needed with discharge planning / needs. DCPIA - Discharge Planning Initial Assessment Updated by [id number]: Carmelita Velasco on 03/09/19 5:15 pm * Is the patient Alert and Oriented? No * How many steps to enter\exit or inside your home? 1/0 * Pharmacy [facility] * Preadmission Environment Home with Family * ADLs Partial Dependent * Partial ADLs (Assistance needed) Dressing Medication Management * Equipment Glucometer * List name and contact numbers for known caregivers / representatives who currently or will assist patient after discharge: Davina Arias - - [phone] * Verbal permission to speak to the caregivers and representatives has been obtained from the patient. N/A * Community resources currently utilized Other * Please name any agencies selected above. [employer] [facility] at [facility] for Parkinson's * Additional services required to return to the preadmission environment? Yes * Can the patient safely return to the preadmission environment? No * Has this patient been hospitalized within the prior 30 days at any hospital? No External Providers External Provider: [facility] Next Contact Date: Service Request Date: Service Type: Resolution: Reviewer: Comments: Coverage Notice Reviewer: [id number] Gume Velasco Notice Issued Date-Time: 03/09/2019 12:30 Notice Type: Patient Choice Letter Notice Delivered To: Family Member Relationship to Patient: Spouse Child Study Team Director Name: Davina Delivery Method: HAND - Hand Delivered Rody Days: Prior Verbal Notification: Recipient Understood Notice: Yes Recipient Signature: Yes Med Rec Note Co-signed by Attending: Coverage Notice Comment: JOAO for [facility] Last DP export: 03/14/19 8:51 Patient Name: DENISE ARIAS Page 14201 at 0959 All edits/amendments must be made on the electronic document DICTATION DATE: 03/14/19957 FARM OPERATIONS MANAGER: JEANNIE 03/14/19957 RPT#: [id number] DC DATE: STATUS: ADM IN [facility] [address] [place] [address] END OF REPORT
--- NOTE | 2019-03-14 10:56 | MORECARE ---
CASE MANAGEMENT DISCHARGE SUMMARY PATIENT: DENISE ARIAS UNIT: [id number] ADM DATE: 03/06/19 AGE: 73 : 44 SEX: M ROOM/BED: D.2230 AUTHOR: GABBY,DOC PHYSICIAN: REFERRING PHYSICIAN: CORY KOEHLER MD DATE OF SERVICE: 03/14/19 Discharge Plan Patient Name: DENISE ARIAS Facility: [facility]:[place] : 1945 Planned Disposition: Residential Facility Anticipated Discharge Date: Discharge Date: Expected LOS: Initial Reviewer: [email or web address] Initial Review Date: 03/06/2019 Generated: 03/14/19 11:56 am Comments DCP- Discharge Planning Updated by [email or web address]: Carmelita Velasco on 03/14/19 8:[address] CM received a call from Marni Marquez with [facility]. Marni states that they are not going to accept patient due to his confusion. I have informed his at the bedside and referral made to [facility] per her request. I informed Mickie with [facility] and clinical faxed. CM will continue to follow and assist with discharge planning/needs. DCP- Discharge Planning Updated by [id number]: Carmelita Velasco on 03/14/19 6:[address] UPDATED CLINICAL FAXED TO [facility]. THEY ARE STILL REVIEWING CLINICAL. HE WILL NEED TO BE OUT OF THE SHARI BED PRIOR TO ADMISSION. CM WILL CONTINUE TO FOLLOW AND ASSIST WITH DISCHARGE PLANNING/NEEDS. DCP- Discharge Planning Updated by [email or web address]: Carmelita Velasco on 03/13/19 10:[address] UPDATED CLINICAL FAXED TO [facility] PER MARNI MARQUEZ'S REQUEST. CM WILL CONTINUE TO FOLLOW AND ASSIST WITH DISCHARGE PLANNING/NEEDS. DCP- Discharge Planning Updated by [id number]: Carmelita Velasco on 03/10/19 2:[address] Patient's would like referral to [facility], I spoke with Marni Marquez there and clinical faxed. CM will continue to follow and assist with discharge planning/needs. DCP- Discharge Planning Updated by [email or web address]: Carmelita Velasco on 03/09/19 4:[address] Patient Name: DENISE ARIAS Admission Status: Elective Accout number: [id number] Admission Date: 03-06-2019 : 1945 Admission Diagnosis: Attending: CORY KOEHLER Current LOS: 3 Anticipated DC Date: Planned Disposition: Residential Facility Primary Insurance: MEDICARE A & B Discharge Planning Comments: CM met with in the room to discuss discharge planning. Her is confused and in a shari bed at this time. She states he lives with her. She states he no longer drives, but she drives him where he needs to go. She states he has a glucometer and checks his own blood sugar, but she gives him his insulin injections. She states that she helps him don his socks and gives him his medicine, but other than that he is independent with his care. He ambulates without assistive device at home. I discussed the availability of inpatient rehab, SNF, home health and DME. She states she would like him to be closer to [facility] and signs choice form for [facility]. She does not want to choose 2 other choices at this time. CM will need to have a PT EVAL before referring to a skilled facility. PT consult has been ordered. CM will continue to follow and assist with discharge planning/needs. Meat Supervisor: Carmelita Velasco DCP- Discharge Planning Updated by [id number]: Sussy Ansari on 03/08/19 5:[address] CM attempted to see patient for discharge planning assessment. Patient is currently confused and no family at bedside. CM will continue to follow and assist as needed with discharge planning / needs. DCPIA - Discharge Planning Initial Assessment Updated by [email or web address]: Carmeliat Velasco on 03/09/19 5:15 pm * Is the patient Alert and Oriented? No * How many steps to enter\exit or inside your home? 1/0 * Pharmacy [facility] * Preadmission Environment Home with Family * ADLs Partial Dependent * Partial ADLs (Assistance needed) Dressing Medication Management * Equipment Glucometer * List name and contact numbers for known caregivers / representatives who currently or will assist patient after discharge: Davina Arias - - [phone] * Verbal permission to speak to the caregivers and representatives has been obtained from the patient. N/A * Community resources currently utilized Other * Please name any agencies selected above. [employer] [facility] at [facility] for Parkinson's * Additional services required to return to the preadmission environment? Yes * Can the patient safely return to the preadmission environment? No * Has this patient been hospitalized within the prior 30 days at any hospital? No External Providers External Provider: [facility] Next Contact Date: Service Request Date: Service Type: Resolution: Reviewer: Comments: Coverage Notice Reviewer: [id number] Gume Velasco Notice Issued Date-Time: 03/09/2019 12:30 Notice Type: Patient Choice Letter Notice Delivered To: Family Member Relationship to Patient: Spouse Scale Technician Name: Davina Delivery Method: HAND - Hand Delivered Rody Days: Prior Verbal Notification: Recipient Understood Notice: Yes Recipient Signature: Yes Med Rec Note Co-signed by Attending: Coverage Notice Comment: JOAO for [facility] Last DP export: 03/14/19 8:58 Patient Name: DENISE ARIAS Page [id number] at 1056 All edits/amendments must be made on the electronic document DICTATION DATE: 03/14/19 1055 ELEVATOR CONSTRUCTOR HYDRAULIC: JEANNIE 03/14/19 1055 RPT#: [id number] DC DATE: STATUS: ADM IN [facility] [address] [place] [address] END OF REPORT
--- NOTE | 2019-03-14 11:53 | NUR ---
SHARI BED REMAINS UNZIPPED AND REGULAR SHARI MAT REMAINS UNDER PATIENT. PATIENT HAS NOT ATTEMPTED TO GET OOB. PATIENT HAS NOT PULLED AT LINES SO FAR. WILL LEAVE BED UNZIPPED AND CONTINUE TO MONITOR.
[2019-03-14] MEDS ORDERED: XIFAXAN550 MG PO (12:19)
--- NOTE | 2019-03-14 12:45 | MORECARE ---
CASE MANAGEMENT DISCHARGE SUMMARY PATIENT: DENISE ARIAS UNIT: [id number] ADM DATE: 03/06/19 AGE: 73 : 44 SEX: M ROOM/BED: D.2230 AUTHOR: VICKY PIERRE PHYSICIAN: REFERRING PHYSICIAN: CORY KOEHLER MD DATE OF SERVICE: 03/14/19 Discharge Plan Patient Name: DENISE ARIAS Facility: [facility]:[place] : 1945 Planned Disposition: Group Home Facility Anticipated Discharge Date: Discharge Date: Expected LOS: Initial Reviewer: [id number] Initial Review Date: 03/06/2019 Generated: 03/14/19 1:44 pm Comments DCP- Discharge Planning Updated by [id number]: Carmelita Velasco on 03/14/19 11:[address] Received a call from Romana at [facility] that he has been accepted. I spoke with Rl Albert and he will write orders. I spoke with patient's and she is in agreement to discharge today. She is very anxious to get him to rehab. He has not been sitting up in the chair yet, so he will need ambulance transfer. I spoke with Raul at [facility] and she states they will accept today. marketing services coordinator and nurse, Cary, informed that he will need ambulance transfer to [facility]. Discharging to a skilled (Medicare) bed. Clinical faxed. CM will continue to follow and assist with discharge planning/needs. DCP- Discharge Planning Updated by [id number]: Carmelita Velasco on 03/14/19 8:[address] CM received a call from Marni Marquez with [facility]. Marni states that they are not going to accept patient due to his confusion. I have informed his at the bedside and referral made to [facility] per her request. I informed Mickie with [facility] and clinical faxed. CM will continue to follow and assist with discharge planning/needs. DCP- Discharge Planning Updated by [id number]: Carmelita Velasco on 03/14/19 6:[address] UPDATED CLINICAL FAXED TO [facility]. THEY ARE STILL REVIEWING CLINICAL. HE WILL NEED TO BE OUT OF THE [place]STER[place] BED PRIOR TO ADMISSION. CM WILL CONTINUE TO FOLLOW AND ASSIST WITH DISCHARGE PLANNING/NEEDS. DCP- Discharge Planning Updated by [id number]: Carmelita Velasco on 03/13/19 10:[address] UPDATED CLINICAL FAXED TO [facility] PER MARNI MARQUEZ'S REQUEST. CM WILL CONTINUE TO FOLLOW AND ASSIST WITH DISCHARGE PLANNING/NEEDS. DCP- Discharge Planning Updated by [id number]: Carmelita Velasco on 03/10/19 2:[address] Patient's would like referral to [facility], I spoke with Marni Marquez there and clinical faxed. CM will continue to follow and assist with discharge planning/needs. DCP- Discharge Planning Updated by [id number]: Carmelita Velasco on 03/09/19 4:[address] Patient Name: DENISE ARIAS Admission Status: Elective Accout number: [id number] Admission Date: 03-06-2019 : 1945 Admission Diagnosis: Attending: CORY KOEHLER Current LOS: 3 Anticipated DC Date: Planned Disposition: Group Home Facility Primary Insurance: MEDICARE A & B Discharge Planning Comments: CM met with in the room to discuss discharge planning. Her is confused and in a lilly bed at this time. She states he lives with her. She states he no longer drives, but she drives him where he needs to go. She states he has a glucometer and checks his own blood sugar, but she gives him his insulin injections. She states that she helps him don his socks and gives him his medicine, but other than that he is independent with his care. He ambulates without assistive device at home. I discussed the availability of inpatient rehab, SNF, home health and DME. She states she would like him to be closer to [facility] and signs choice form for [facility]. She does not want to choose 2 other choices at this time. CM will need to have a PT EVAL before referring to a skilled facility. PT consult has been ordered. CM will continue to follow and assist with discharge planning/needs. Lingo Cleaner: Carmelita Velasco DCP- Discharge Planning Updated by [id number]: Sussy Ansrai on 03/08/19 5:[address] CM attempted to see patient for discharge planning assessment. Patient is currently confused and no family at bedside. CM will continue to follow and assist as needed with discharge planning / needs. DCPIA - Discharge Planning Initial Assessment Updated by [email or web address]: Carmelita Velasco on 03/09/19 5:15 pm * Is the patient Alert and Oriented? No * How many steps to enter\exit or inside your home? 1/0 * Pharmacy [facility] * Preadmission Environment Home with Family * ADLs Partial Dependent * Partial ADLs (Assistance needed) Dressing Medication Management * Equipment Glucometer * List name and contact numbers for known caregivers / representatives who currently or will assist patient after discharge: Davina Arias - - [phone] * Verbal permission to speak to the caregivers and representatives has been obtained from the patient. N/A * Community resources currently utilized Other * Please name any agencies selected above. [employer] [facility] at [facility] [address] for Parkinson's * Additional services required to return to the preadmission environment? Yes * Can the patient safely return to the preadmission environment? No * Has this patient been hospitalized within the prior 30 days at any hospital? No Coverage Notice Reviewer: [id number] Gume Velasco Notice Issued Date-Time: 03/09/2019 12:30 Notice Type: Patient Choice Letter Notice Delivered To: Family Member Relationship to Patient: Spouse Plumber Maintenance Name: Davina Delivery Method: HAND - Hand Delivered Rody Days: Prior Verbal Notification: Recipient Understood Notice: Yes Recipient Signature: Yes Med Rec Note Co-signed by Attending: Coverage Notice Comment: JOAO for [facility] Reviewer: [id number] Velasco Notice Issued Date-Time: 03/14/2019 12:22 Notice Type: IM Discharge Notice Notice Delivered To: Family Member Relationship to Patient: Spouse Plumber Maintenance Name: Delivery Method: HAND - Hand Delivered Rody Days: Prior Verbal Notification: Recipient Understood Notice: Yes Recipient Signature: Yes Med Rec Note Co-signed by Attending: Coverage Notice Comment: is present, IMM given, explained, signed, copy placed in MR Last DP export: 03/14/19 9:56 Patient Name: DENISE ARIAS Page 31084 at 1245 All edits/amendments must be made on the electronic document DICTATION DATE: 03/14/19 1244 CHAR CONVEYOR TENDER CELLAR: JEANNIE 03/14/19 1244 RPT#: [id number] DC DATE: STATUS: ADM IN [facility] [address] [place] [address] END OF REPORT
[2019-03-14 13:27] VITALS: BP 88/55
--- NOTE | 2019-03-14 14:27 | NUR ---
DISCHARGE EDUCATION PROVIDED BOTH WRITTEN AND VERBAL TO AT BEDSIDE. VERBALIZED UNDERSTANDING. DENIES FURTHER QUESTIONS. ABD PAD APPLIED TO LEFT SIDE FOR TRANSPORT FOR DRAINAGE. IV REMOVED FROM RIGHT WRIST WITH TIP INTACT. ATTEMPTED TO CALL REPORT TO [facility]. STATES WILL CALL RIGHT BACK. AMBULANCE CALLED TO P/U PATIENT.
--- NOTE | 2019-03-14 14:47 | NUR ---
REPORT CALLED TO CORINA AT [facility]. DENIES FURTHER QUESTIONS. STATES WILL MAKE PATIENT'S F/U APPT WITH DR RUIZ.
--- NOTE | 2019-03-14 15:30 | NUR ---
PATIENT DISCHARGED TO [facility] VIA AMBULANCE WITH ALL BELONGINGS. FOLLOWING AMBULANCE TO [facility].
== END 2019-03-14 15:31 | DRG 329 ==
LOC: D.CT 10:33 → D.ICU 14:52 → D.MS 14:52 → D.ICU 03-07 17:20 → D.MS 03-09 09:58
PROVIDERS: Emergency Medicine; Surgery; ADMIT Legal Medicine; ATTEND Legal Medicine
PROC: 0WQF4ZZ Repair Abdominal Wall, Percutaneous Endoscopic Approach (ICD-10-PCS; principal; 2019-03-07 12:00)
PROC: 0DB84ZZ Excision of Small Intestine, Percutaneous Endoscopic Approach (ICD-10-PCS; 2019-03-07 12:00)
DX: K56.609 Unspecified intestinal obstruction, unspecified as to partial versus complete obstruction (principal); R53.2 Functional quadriplegia; N17.9 Acute kidney failure, unspecified; L03.311 Cellulitis of abdominal wall; K42.9 Umbilical hernia without obstruction or gangrene; G20 Parkinson's disease; F02.80 Dementia in other diseases classified elsewhere, unspecified severity, without behavioral disturbance, psychotic disturbance, mood disturbance, and anxiety; D69.6 Thrombocytopenia, unspecified; E11.65 Type 2 diabetes mellitus with hyperglycemia